=== PATIENT | male | born 1980 ===

== ENCOUNTER → 2018-07-05 11:43 | Outpatient (CLI) | payer OTHER, SELFPAY ==
[2018-07-05 12:50] LABS: Semen Sperm Prescence Post-Vas Present (ABSENT)
== END ==
PROVIDERS: Visit Provider Specialist
DX: Z30.2 Encounter for sterilization (principal)
CPT/HCPCS: 89321

== ENCOUNTER → 2018-07-22 10:08 | Outpatient (CLI) | payer OTHER, SELFPAY ==
[2018-07-22 10:36] LABS: Semen Sperm Prescence Post-Vas Absent (ABSENT)
== END ==
PROVIDERS: Visit Provider Specialist
DX: Z30.2 Encounter for sterilization (principal)
CPT/HCPCS: 89321

== ENCOUNTER 2020-03-06 14:36 | Emergency (ER) | payer OTHER, SELFPAY ==
[2020-03-06 14:48] VITALS: BP 137/81; PULSE 90; RESP 24; TEMP 37.3; O2SAT 98; BMI 30.1
[2020-03-06] MEDS: ACETAMINOPHEN 325 MG TABLET 650 MG PO (15:11)
[2020-03-06] MEDS: LIDOCAINE PATCH 1 EACH ADH..PATCH TOP (15:11)
[2020-03-06] MEDS: KETOROLAC 60 MG/2 ML VIAL 30 MG IM (15:11)
--- NOTE | 2020-03-06 15:36 | ED.UPPEXIN ---
HPI - Extremity Injury (Upper) <JIAN Torre - Last Filed: 03/06/20 17:01> General Chief Complaint: Extremity Injury, Upper Stated Complaint: RT shoulder poss tearing Time Seen by Provider: 03/06/20 14:44 Source: patient Mode of arrival: Ambulatory Limitations: no limitations History of Present Illness HPI narrative: This is a 39-year-old male, nonsmoker, with noncontributory medical history presents to ED with nontraumatic right anterior shoulder and right-sided neck pain. Patient denies chest pain, short of breath, lightheadedness. Patient reports pain increases with forward elevation and abduction of affected arm is unable to elevated greater than 90 degree due to pain. Patient denies tingling/numbness distally. He is able to move all fingers without difficulty. Patient reports pain as 7/10 and describes as sharp. Patient is [employer]. He reports attempted to see his primary care physician but was late for his appointment on Sunday and was told to make another appointment. Patient had taken ibuprofen 600 mg 2 days ago. Related Data Previous Rx's Medication Instructions Recorded cyclobenzaprine 10 mg PO BEDTIME PRN #7 tab 03/06/20 lidocaine 1 patch TOP Q24H PRN #15 each 03/06/20 Allergies Allergy/AdvReac Type Severity Reaction Status Date / Time No Known Drug Allergies Allergy Verified 03/06/20 14:48 Review of Systems <JIAN Torre - Last Filed: 03/06/20 17:01> Review of Systems Narrative: General: Denies fever, chills, fatigue, malaise, sweats. Respiratory: Denies dyspnea, cough, wheezing, hemoptysis, sputum. Cardiovascular: Denies chest pain, palpitations, orthopnea, edema. Gastrointestinal: Denies nausea, vomiting, abdominal pain, diarrhea, constipation, melena. : Denies dysuria, frequency, incontinence, hematuria, urinary retention. Musculoskeletal: See HPI Skin: Denies rash, skin lesions, or other. Neurologic: Denies weakness, headache, numbness, change in speech, confusion, seizures, incoordination. Patient History <JIAN Torre Last Filed: 03/06/20 17:01> Medical History No significant past medical history (Acute) Surgical History No pertinent past surgical history (Acute) Social History Smoking Status: Current every day smoker Smoking Status: Current every day smoker tobacco type: cigarettes alcohol intake frequency: a few times a week Alcohol type: beer Substance Use Type: does not use Exam <JIAN Torre - Last Filed: 03/06/20 17:01> Narrative Exam Narrative: General appearance: well developed, well nourished, in no acute distress. Head: normocephalic, atraumatic, no scalp lesions, non-tender. ENT: Hearing grossly intact. Airway patent. Neck/Thyroid: neck supple, full range of motion, no visible masses or meningeal signs. No JVD, non-tender without lymphadenopathy. Skin: no suspicious rashes, lesions over visible areas. Warm and dry and appropriate color for ethnicity. Heart: no clubbing, no cyanosis, no edema. Lungs: Breathing even and unlabored. No stridor. No accessory muscles used. Able to speak in full sentences. Chest: normal shape and expansion. Abdomen: non-obese, non-distended. Neurologic: alert and oriented. Cognitive exam, UPPER INSPECTOR and PNS grossly intact on informal exam. Psych: good eye contact, normal affect. Initial Vital Signs Initial Vital Signs: Vital Signs Temperature 99.1 F 03/06/20 14:48 Pulse Rate 90 03/06/20 14:48 Respiratory Rate 24 03/06/20 14:48 Blood Pressure 137/81 03/06/20 14:48 Pulse Oximetry 98 03/06/20 14:48 Extrem Right upper extremity: normal to inspection, shoulder/upper arm Details: normal to inspection, tenderness Location: of the clavicle and abnormal ROM Details: pain with active ROM Details: in ABduction and in flexion (forward greater than 90 degree) and pain with passive ROM; no swelling, no crepitus, no deformity and no unusual warmth and hand Details: normal to inspection, normal capillary refill, neuromotor exam normal, vascular exam Details: radial pulse present and normal capillary refill and normal ROM of fingers; no tenderness <DO Sanjuanita Kwan Last Filed: 03/07/20 07:44> Initial Vital Signs Initial Vital Signs: Vital Signs Temperature 99.1 F 03/06/20 14:48 Pulse Rate 90 03/06/20 14:48 Respiratory Rate 24 03/06/20 14:48 Blood Pressure 137/81 03/06/20 14:48 Pulse Oximetry 98 03/06/20 14:48 Scores <Henry RoseJIAN Lopez - Last Filed: 03/06/20 17:01> GCS Samantha coma scale eye opening: Spontaneous Samantha coma scale verbal response: Orientated [place] coma scale motor response: Obey commands Samantha coma scale total score: 15 Course <Henry JIAN Fish - Last Filed: 03/06/20 17:01> Orders Ordered: Discontinued Medications Acetaminophen (Tylenol) 650 mg PO NOW ONE Stop: 03/06/20 14:54 Last Admin: 03/06/20 15:11 Dose: 650 mg Documented by: SARA Ketorolac Tromethamine (Toradol) 30 mg IM NOW ONE Stop: 03/06/20 14:54 Last Admin: 03/06/20 15:11 Dose: 30 mg Documented by: SARA Lidocaine (Lidoderm) 1 each TOP NOW ONE Stop: 03/06/20 14:54 Last Admin: 03/06/20 15:11 Dose: 1 each Documented by: SARA Vital Signs Vital signs: Vital Signs - 8 hr 03/06/20 14:48 03/06/20 16:53 Temperature 99.1 F Pulse Rate 90 75 Respiratory Rate 24 16 Blood Pressure 137/81 131/76 Pulse Oximetry 98 97 <Milka Saucedo DO - Last Filed: 03/07/20 07:44> Orders Ordered: Discontinued Medications Acetaminophen (Tylenol) 650 mg PO NOW ONE Stop: 03/06/20 14:54 Last Admin: 03/06/20 15:11 Dose: 650 mg Documented by: SARA Ketorolac Tromethamine (Toradol) 30 mg IM NOW ONE Stop: 03/06/20 14:54 Last Admin: 03/06/20 15:11 Dose: 30 mg Documented by: SARA Lidocaine (Lidoderm) 1 each TOP NOW ONE Stop: 03/06/20 14:54 Last Admin: 03/06/20 15:11 Dose: 1 each Documented by: SARA Vital Signs Vital signs: Vital Signs - 8 hr 03/06/20 14:48 03/06/20 16:53 Temperature 99.1 F Pulse Rate 90 75 Respiratory Rate 24 16 Blood Pressure 137/81 131/76 Pulse Oximetry 98 97 [facility] - Extremity Injury (Upper) <Henry JIAN Fish - Last Filed: 03/06/20 17:01> Differential Diagnosis Differential diagnosis: Likely other (Shoulder strain, bursitis) Medical Records Attestation: I reviewed the patient's medical records. [facility] Narrative Medical decision making narrative: This is a 39 year male who presents to ED with nontraumatic right anterior shoulder and pain radiating to his neck with movements. Patient denies any cardiac symptoms such as chest pain, breathing difficulty, or dizziness associated his symptoms. Range of motion on right arm is slightly limited greater than 90 degree on forward flexion and abduction. Equal bilateral strength on bilateral arms. Intact sensation and good distal pulses. Patient medicated with IM Toradol 30mg, Tylenol 650 mg, Lidocaine patch since patient drove to ED with good efficacy. Patient discharged to home with same medication and in addition a few tabs of Flexeril provided with medication precautions. Patient advised to follow-up with primary care physician and [facility] and 2 days off note provided. Return precautions were discussed with patient and he verbalized understanding in agreement with the treatment plan. Discharge Plan Departure Patient Disposition: Home Clinical Impression: Acute shoulder pain Qualifiers: Laterality: right Qualified Code(s): M25.511 - Pain in right shoulder Discharge Date/Time: 03/06/20 16:53 Instructions: DI for Shoulder Sprain Activity Restrictions/Additional Instructions: You have been diagnosed with [acute right shoulder pain. You were medicated with IM Toradol, Lidocaine, and Tylenol in ED with improvement.]. What to do: *Take your medications as directed. You can continue with [id number] Tylenol and or Motrin as needed for discomfort. Tylenol 650 mg up to 4 times a day as needed. Ibuprofen 400-600 mg up to 3 to 4 times a day as needed for pain with food. Lidocaine patch on affected site which stays on for 12 hours and off for 12 hours as needed for pain. Flexeril is muscle relaxant and you can use this as needed. Flexeril can cause drowsiness so please take precaution not driving, drinking alcohol, or operate heavy equipments. Work off for 2 days. These medication have been transmitted to [facility] [place]. *Follow up with your primary care provider in 2-3 days, call for an appointment. Let them know you were seen in the ED and that we asked you to be seen in follow up. *Return to ED if you have any new, worsening, or concerning symptoms, such as [worsening pain, chest pain, breathing difficulty, unable to tolerate fluids, increasing weakness/numbness/tingling distally or any acute concerns]. Prescriptions: New lidocaine 5 % adhesive patch,medicated 1 patch TOP Q24H PRN (Reason: Pain) Qty: 15 RF: 0 cyclobenzaprine 10 mg tablet 10 mg PO BEDTIME PRN (Reason: muscle spasm) Qty: 7 RF: 0 Referrals: [facility] [Outside] Stand Alone Forms: Work Release Note <Milka Saucedo, - Last Filed: 03/07/20 07:44> Cosign ED Attending Coselsaature Attestation: I was immediately available in the department for consultation. Documentation has been reviewed. I agree with assessment and plan.
--- NOTE | 2020-03-06 16:27 | PC.NURSE ---
reports pain related to packing/moving boxes. Began sunday and getting worse.
[2020-03-06 16:53] VITALS: BP 131/76; PULSE 75; RESP 16; O2SAT 97
== END 2020-03-06 16:53 | disposition home or self-care (01) ==
PROVIDERS: Emergency Provider Nurse Practitioner Family
DX: M25.511 Pain in right shoulder (principal); M54.2 Cervicalgia
CPT/HCPCS: 96372; 99283; J1885